=== PATIENT | male | born 1965 | race African-American/Black ===

== ENCOUNTER 2016-12-07 12:33 | Emergency (ER) | payer MEDICAID ==
[~2016-12-07] VITALS: Ht 177.8 cm; Wt 87.0 kg
[2016-12-07] MEDS ORDERED: TETANUS, DIPHTHERIA, PERTUSSIS VAC/PF 0.5ML (>7YR OLD) IM ONE (13:15)
[2016-12-07] MEDS ORDERED: BACITRACIN ZINC OINT UDPKT TOP ONE (13:15)
[2016-12-07] MEDS ORDERED: LIDOCAINE HCL 1% 20ML VIAL (Pyxis) INJ MC ONE (13:15)
[2016-12-07 13:29] LABS: BASOPHILS % 0.6 % (0.0-2.0); HEMATOCRIT. 45.2 % (42.0-52.0); HEMOGLOBIN. 15.7 g/dL (14.0-18.0); LYMPHOCYTES % 15.1 % (20.0-50.0); MEAN CORPUSCULAR HEMOGLOBIN 31.4 pg (28.0-32.0); MEAN CORPUSCULAR VOLUME 90.5 fL (80.0-94.0); MEAN PLATELET VOLUME 8.3 fl (7.4-10.4); NEUTROPHILS % 76.3 % (40.0-76.0); PLATELET 191 x1000/uL (130-400); RED BLOOD CELL COUNT 4.99 mill/uL (4.7-6.1); RED CELL DISTRIBUTION WIDTH 14.2 % (11.6-14.6)
[2016-12-07 13:37] LABS: CARBON DIOXIDE 29 mEq/L (21-32); CHLORIDE 106 mEq/L (98-107); ETHANOL BLOOD < 10 mg/dL
[2016-12-07 14:37] LABS: *AMPHETAMINES SCREEN URINE NEGATIVE (NEGATIVE); *BARBITURATES SCREEN URINE NEGATIVE (NEGATIVE); *BENZODIAZEPINES SCREEN URINE NEGATIVE (NEGATIVE); *COCAINE SCREEN URINE PRESUMTIVE POSITIVE (NEGATIVE); CANNABINOID URINE SCREEN PRESUMTIVE POSITIVE (NEGATIVE); METHADONE URINE SCREEN NEGATIVE (NEGATIVE); OPIATES URINE SCREEN NEGATIVE (NEGATIVE); PHENCYCLIDINE URINE SCREEN NEGATIVE (NEGATIVE)
[2016-12-07 17:03] VITALS: BP 168/99
== END 2016-12-07 17:26 | disposition home or self-care (01) ==
LOC: ER 13:10
DX: S61.512A Laceration without foreign body of left wrist, initial encounter (principal); F20.9 Schizophrenia, unspecified; F32.9 Major depressive disorder, single episode, unspecified; F19.10 Other psychoactive substance abuse, uncomplicated; R45.851 Suicidal ideations; X78.1XXA Intentional self-harm by knife, initial encounter; Y93.89 Activity, other specified; Y99.8 Other external cause status; Y92.89 Other specified places as the place of occurrence of the external cause; Z87.891 Personal history of nicotine dependence
CPT/HCPCS: 12001; 36415; 80048; 80305; 80307; 80329; 85025; 90471; 90715; 99284; G0482; J3490; X7700; Z7610

== ENCOUNTER 2018-09-20 07:36 | Emergency (ER) | payer MEDICAID ==
[~2018-09-20] VITALS: Ht 175.3 cm; Wt 100.0 kg
[2018-09-20] MEDS ORDERED: SODIUM CHLORIDE 0.9% 1,000 ML IV ONE (08:01)
[2018-09-20] MEDS ORDERED: LORAZEPAM 1MG TABLET PO ONE (08:15)
[2018-09-20 08:27] LABS: BASOPHILS % 0.9 % (0.0-2.0); HEMATOCRIT. 41.8 % (42.0-52.0); HEMOGLOBIN. 14.7 g/dL (14.0-18.0); LYMPHOCYTES % 40.1 % (20.0-50.0); MEAN CORPUSCULAR HEMOGLOBIN 32.1 pg (28.0-32.0); MEAN CORPUSCULAR VOLUME 91.3 fL (80.0-94.0); MEAN PLATELET VOLUME 10.9 fl (7.4-10.4); MONOCYTES % 6.9 % (2.0-8.0); NEUTROPHILS % 49.1 % (40.0-76.0); PLATELET 379 x1000/uL (130-400); RED BLOOD CELL COUNT 4.58 mill/uL (4.7-6.1); RED CELL DISTRIBUTION WIDTH 14.9 % (11.6-14.6)
[2018-09-20] MEDS ORDERED: ONDANSETRON HCL 4MG/2ML INJ IV ONE (08:30)
[2018-09-20 09:08] LABS: CLARITY URINE CLEAR (CLEAR); COLOR URINE YELLOW (YELLOW); KETONES URINE 1+ (NEGATIVE); LEUKOCYTE ESTERASE URINE NEGATIVE (NEGATIVE); NITRITE URINE NEGATIVE (NEGATIVE); OCCULT BLOOD URINE TRACE (NEGATIVE); PH URINE 7.5 (4.5-8.0); PROTEIN URINE TRACE (NEGATIVE); SPECIFIC GRAVITY URINE 1.011 (1.005-1.030); UROBILINOGEN URINE 0.2 E.U./dL (0.2-1.0)
[2018-09-20 09:11] LABS: CHLORIDE 108 mEq/L (98-107)
[2018-09-20 09:18] LABS: ETHANOL BLOOD < 10 mg/dL
[2018-09-20 09:19] LABS: *AMPHETAMINES SCREEN URINE NEGATIVE (NEGATIVE); *BARBITURATES SCREEN URINE NEGATIVE (NEGATIVE); *BENZODIAZEPINES SCREEN URINE NEGATIVE (NEGATIVE); *COCAINE SCREEN URINE NEGATIVE (NEGATIVE); METHADONE URINE SCREEN NEGATIVE (NEGATIVE); OPIATES URINE SCREEN NEGATIVE (NEGATIVE)
[2018-09-20 09:20] LABS: CANNABINOID URINE SCREEN PRESUMTIVE POSITIVE (NEGATIVE); PHENCYCLIDINE URINE SCREEN NEGATIVE (NEGATIVE)
[2018-09-20 11:17] VITALS: BP 165/104
== END 2018-09-20 11:21 | disposition home or self-care (01) ==
LOC: ER 07:36
DX: T40.7X1A Poisoning by cannabis (derivatives), accidental (unintentional), initial encounter (principal); R42 Dizziness and giddiness; Y92.89 Other specified places as the place of occurrence of the external cause
CPT/HCPCS: 36415; 80053; 80305; 80320; 81003; 85025; 93005; 96361; 96374; 99284; J2405; J7030; Z7610; G0480

== ENCOUNTER 2021-04-30 00:45 | Emergency (ER) | payer MEDICAID ==
[~2021-04-30] VITALS: Ht 177.8 cm; Wt 100.0 kg
[2021-04-30] MEDS ORDERED: IPRATROPIUM BROMIDE (0.02%) 0.5MG/2.5ML NEB HHN STA (00:53)
[2021-04-30] MEDS ORDERED: ALBUTEROL (0.083%) 2.5MG/3ML NEB HHN STA (00:53)
[2021-04-30] MEDS ORDERED: MAGNESIUM 2 G PREMIX 50 ML IV ONE (01:00)
[2021-04-30] MEDS ORDERED: ASPIRIN 81MG TABLET PO ONE (01:00)
[2021-04-30] MEDS ORDERED: NITROGLYCERIN OINT 1GM/INCH UDPKT TD ONE (01:00)
[2021-04-30] MEDS ORDERED: DOPAMINE 400MG/250ML PREMIX 250 ML IV STA (01:05)
[2021-04-30] MEDS: FUROSEMIDE 40MG/4ML VIAL IV ONE ×2 (01:18→01:55)
[2021-04-30 01:31] LABS: BASOPHILS % 0.8 % (0.0-2.0); EOSINOPHILS % 3.2 % (0.0-5.0); HEMATOCRIT. 36.5 % (42.0-52.0); HEMOGLOBIN. 12.6 g/dL (14.0-18.0); LYMPHOCYTES % 48.2 % (20.0-50.0); MEAN CORPUSCULAR HEMOGLOBIN 31.8 pg (28.0-32.0); MEAN CORPUSCULAR VOLUME 92.5 fL (80.0-94.0); MEAN PLATELET VOLUME 8.4 fl (7.4-10.4); MONOCYTES % 5.9 % (2.0-8.0); NEUTROPHILS % 41.9 % (40.0-76.0); PLATELET 207 x1000/uL (130-400); RED BLOOD CELL COUNT 3.95 mill/uL (4.7-6.1); RED CELL DISTRIBUTION WIDTH 14.2 % (11.6-14.6)
[2021-04-30 01:35] LABS: CHLORIDE 111 mEq/L (98-107)
[2021-04-30] MEDS ORDERED: ENOXAPARIN 100MG/ML SYR SUBCUT ONE (03:00)
[2021-04-30] MEDS ORDERED: ONDANSETRON HCL 4MG/2ML INJ IV PRN (08:30)
[2021-04-30] MEDS ORDERED: ACETAMINOPHEN 325MG TABLET PO PRN (08:30)
[2021-04-30 08:49] VITALS: BP 142/91
[2021-04-30] MEDS ORDERED: FUROSEMIDE 40MG/4ML VIAL IVP SCH (09:00)
[2021-04-30] MEDS ORDERED: ASPIRIN 81MG TABLET PO SCH (12:00)
== END 2021-04-30 09:03 | disposition left against medical advice (07) ==
LOC: ER 00:45 → ENRESERV 07:44 → CANRESERV 07:44 → ER 09:03 → CANBEDREQ 17:19
DX: I21.4 Non-ST elevation (NSTEMI) myocardial infarction (principal); I11.0 Hypertensive heart disease with heart failure; I50.9 Heart failure, unspecified; R00.1 Bradycardia, unspecified; F12.10 Cannabis abuse, uncomplicated
CPT/HCPCS: 36415; 71045; 80053; 83605; 83880; 84443; 84484; 85025; 85379; 93005; 94640; 96365; 96368; 96372; 96375; 99291; J1265; J1650; J1940; J3475; Z7610

== ENCOUNTER 2021-05-12 00:07 | Inpatient (IN) | payer MEDICAID ==
[~2021-05-12] VITALS: Ht 170.2 cm; Wt 96.6 kg
[2021-05-12] MEDS ORDERED: FUROSEMIDE 40MG/4ML VIAL IV ONE (00:15)
[2021-05-12 00:39] LABS: BASOPHILS % 1.3 % (0.0-2.0); MEAN CORPUSCULAR HEMOGLOBIN 30.7 pg (28.0-32.0); MEAN CORPUSCULAR VOLUME 92.1 fL (80.0-94.0); MEAN PLATELET VOLUME 8.7 fl (7.4-10.4); MONOCYTES % 5.4 % (2.0-8.0); NEUTROPHILS % 56.3 % (40.0-76.0); PLATELET 213 x1000/uL (130-400); RED BLOOD CELL COUNT 4.24 mill/uL (4.7-6.1); RED CELL DISTRIBUTION WIDTH 14.1 % (11.6-14.6)
[2021-05-12 01:08] LABS: CHLORIDE 112 mEq/L (98-107)
[2021-05-12 01:15] LABS: ETHANOL BLOOD < 10 mg/dL
[2021-05-12 01:35] LABS: *AMPHETAMINES SCREEN URINE NEGATIVE (NEGATIVE); *BARBITURATES SCREEN URINE NEGATIVE (NEGATIVE); *BENZODIAZEPINES SCREEN URINE NEGATIVE (NEGATIVE); *COCAINE SCREEN URINE NEGATIVE (NEGATIVE); METHADONE URINE SCREEN NEGATIVE (NEGATIVE)
[2021-05-12 01:36] LABS: CANNABINOID URINE SCREEN PRESUMTIVE POSITIVE (NEGATIVE); OPIATES URINE SCREEN NEGATIVE (NEGATIVE); PHENCYCLIDINE URINE SCREEN NEGATIVE (NEGATIVE)
[2021-05-12 05:17] VITALS: BP 152/103
[2021-05-12] MEDS ORDERED: AMLO10TA80 PO (05:38)
[2021-05-12] MEDS ORDERED: HYDROCODONE/ACETAMINOPHEN 5/325MG TABLET PO PRN (06:00)
[2021-05-12] MEDS ORDERED: NALOXONE HCL 0.4MG/ML VIAL IV PRN (06:15)
[2021-05-12 07:40] LABS: BASOPHILS % 1.1 % (0.0-2.0); EOSINOPHILS % 3.4 % (0.0-5.0); HEMATOCRIT. 37.6 % (42.0-52.0); HEMOGLOBIN. 12.7 g/dL (14.0-18.0); LYMPHOCYTES % 32.8 % (20.0-50.0); MEAN CORPUSCULAR HEMOGLOBIN 31.8 pg (28.0-32.0); MEAN CORPUSCULAR VOLUME 93.8 fL (80.0-94.0); MEAN PLATELET VOLUME 8.3 fl (7.4-10.4); MONOCYTES % 9.4 % (2.0-8.0); NEUTROPHILS % 53.3 % (40.0-76.0); PLATELET 196 x1000/uL (130-400); RED BLOOD CELL COUNT 4.01 mill/uL (4.7-6.1); RED CELL DISTRIBUTION WIDTH 14.4 % (11.6-14.6)
[2021-05-12 07:51] LABS: CHLORIDE 112 mEq/L (98-107)
[2021-05-12 08:00] VITALS: BP 151/89
[2021-05-12] MEDS: ENOXAPARIN 30MG/0.3ML SYR SUBCUT SCH ×2 (08:37→21:07)
[2021-05-12] MEDS: CARVEDILOL 3.125 MG TABLET PO SCH ×2 (08:37→21:06)
[2021-05-12] MEDS: FUROSEMIDE 40MG/4ML VIAL IVP SCH ×2 (09:00→20:30)
[2021-05-12 12:00] VITALS: BP 156/90
[2021-05-12] MEDS: ASPIRIN 81MG TABLET PO SCH (13:31)
[2021-05-12 16:00] VITALS: BP 159/95
[2021-05-12] MEDS: AMLODIPINE 10MG TABLET PO SCH (17:38)
[2021-05-12 20:00] VITALS: BP 196/145
[2021-05-12] MEDS ORDERED: CLONIDINE 0.2MG TABLET PO PRN (21:00)
[2021-05-12] MEDS ORDERED: GUAIFENESIN 200MG/10ML SUGAR FREE UDC PO PRN ×2 (21:00)
[2021-05-12] MEDS: CLONIDINE 0.2MG TABLET PO PRN (21:07)
[2021-05-13] VITALS (7 sets, daily range): BP systolic 106–176; BP diastolic 89–104
[2021-05-13] MEDS: IPRATROPIUM/ALBUTEROL 0.5-3(2.5)MG/3ML NEB HHN SCH ×7 (04:59→23:49)
[2021-05-13] MEDS: AMLODIPINE 10MG TABLET PO SCH (08:23)
[2021-05-13] MEDS: ASPIRIN 81MG TABLET PO SCH (08:23)
[2021-05-13] MEDS: CARVEDILOL 3.125 MG TABLET PO SCH ×2 (08:23→21:50)
[2021-05-13] MEDS: ENOXAPARIN 30MG/0.3ML SYR SUBCUT SCH ×2 (08:24→21:50)
[2021-05-13] MEDS: FUROSEMIDE 40MG/4ML VIAL IVP SCH ×2 (09:16→20:29)
[2021-05-13] MEDS ORDERED: REGADENOSON 0.4 MG/5 ML IV ONE (10:30)
[2021-05-13] MEDS: CLONIDINE 0.2MG TABLET PO PRN (16:40)
[2021-05-14] VITALS: BP 128/82
[2021-05-14 04:00] VITALS: BP_SYST 116; BP_SYST 151; BP_DIAS 107; BP_DIAS 97
[2021-05-14 08:00] VITALS: BP 151/117
[2021-05-14] MEDS ORDERED: REGADENOSON 0.4 MG/5 ML IV ONE ×2 (08:58→10:38)
[2021-05-14] MEDS: AMLODIPINE 10MG TABLET PO SCH (09:00)
[2021-05-14] MEDS: ASPIRIN 81MG TABLET PO SCH (09:00)
[2021-05-14] MEDS: CARVEDILOL 3.125 MG TABLET PO SCH (09:00)
[2021-05-14] MEDS: ENOXAPARIN 30MG/0.3ML SYR SUBCUT SCH (09:00)
[2021-05-14] MEDS: FUROSEMIDE 40MG/4ML VIAL IVP SCH ×2 (09:00→12:39)
[2021-05-14] MEDS: IPRATROPIUM/ALBUTEROL 0.5-3(2.5)MG/3ML NEB HHN SCH (09:10)
[2021-05-14] MEDS ORDERED: FURO-151 MT (10:03)
[2021-05-14] MEDS ORDERED: COR3 PO (10:03)
[2021-05-14] MEDS ORDERED: FLUT1DIS3 INH (10:03)
[2021-05-14] MEDS ORDERED: LOSA100T32 MT (10:03)
[2021-05-14] MEDS ORDERED: ALBU18HF2 IH (10:03)
[2021-05-14] MEDS ORDERED: ATORVASTATIN CALCIUM 10MG TABLET PO SCH (11:30)
[2021-05-14] MEDS: CLONIDINE 0.2MG TABLET PO PRN (11:39)
[2021-05-14 12:11] VITALS: BP 158/105
[2021-05-14] MEDS ORDERED: LOSARTAN POTASSIUM 100 MG TABLET PO SCH (12:30)
== END 2021-05-14 13:40 | disposition home or self-care (01) | DRG 194 ==
LOC: ER 00:07 → 8WST 03:08 → ENRESERV 03:54
PROVIDERS: ADMIT Internal Medicine; ATTEND Internal Medicine
PROC: 5A09357 Assistance with Respiratory Ventilation, Less than 24 Consecutive Hours, Continuous Positive Airway Pressure (ICD-10-PCS; principal; 2021-05-12)
DX: I13.0 Hypertensive heart and chronic kidney disease with heart failure and stage 1 through stage 4 chronic kidney disease, or unspecified chronic kidney disease (principal); J96.00 Acute respiratory failure, unspecified whether with hypoxia or hypercapnia; I50.21 Acute systolic (congestive) heart failure; F12.90 Cannabis use, unspecified, uncomplicated; F17.210 Nicotine dependence, cigarettes, uncomplicated; N18.9 Chronic kidney disease, unspecified; I34.0 Nonrheumatic mitral (valve) insufficiency; I16.0 Hypertensive urgency; Z20.822 Contact with and (suspected) exposure to COVID-19; E78.5 Hyperlipidemia, unspecified; I25.10 Atherosclerotic heart disease of native coronary artery without angina pectoris; I25.5 Ischemic cardiomyopathy; Z79.82 Long term (current) use of aspirin; Z79.899 Other long term (current) drug therapy; Z71.6 Tobacco abuse counseling
CPT/HCPCS: 36415; 71045; 78452; 80048; 80053; 80061; 80305; 80320; 83605; 83880; 84484; 85025; 87426; 93005; 93017; 93306; 94660; 99291; A9500; J1650; J1940; J2785; G0480

== ENCOUNTER 2021-12-06 04:07 | Inpatient (IN) | payer MEDICAID ==
[~2021-12-06] VITALS: Ht 172.7 cm; Wt 110.7 kg
[~2021-12-06 04:07] MED LIST: ALBU18HF2 IH; COR3 PO; FLUT1DIS3 INH; FURO-151 MT; LOSA100T32 MT
[2021-12-06] MEDS ORDERED: EPINEPHRINE 1:1000 1 MG/ML AMP IM ONE (04:30)
[2021-12-06] MEDS ORDERED: FAMOTIDINE 20MG/2ML VIAL IV ONE (04:30)
[2021-12-06] MEDS ORDERED: DIPHENHYDRAMINE 50MG/ML VIAL IV ONE (04:30)
[2021-12-06] MEDS ORDERED: METHYLPREDNISOLONE SOD SUCC 125 MG/2 ML VIAL IV ONE (04:30)
[2021-12-06 06:21] LABS: CHLORIDE 111 mEq/L (98-107)
[2021-12-06 06:26] LABS: HEMATOCRIT 40.1 % (42.0-52.0); HEMOGLOBIN 13.6 g/dL (14.0-18.0); MEAN CORPUSCULAR HEMOGLOBIN 31.6 pg (28.0-32.0); MEAN CORPUSCULAR VOLUME 93.1 fL (80.0-94.0); PLATELET 172 x1000/uL (130-400); RED BLOOD CELL COUNT 4.31 mill/uL (4.7-6.1)
[2021-12-06] MEDS ORDERED: ONDANSETRON HCL 4MG/2ML INJ IV PRN (07:30)
[2021-12-06] MEDS ORDERED: MAGNESIUM/ALUMINUM HYDROXIDE/SIMETHICONE 30ML UDC PO PRN (07:30)
[2021-12-06] MEDS ORDERED: LORAZEPAM 2MG/ML CPJ IV PRN (07:30)
[2021-12-06] MEDS ORDERED: DIPHENHYDRAMINE 50MG/ML VIAL IV PRN (07:30)
[2021-12-06] MEDS ORDERED: KETOROLAC 15MG/ML VIAL IV PRN (07:30)
[2021-12-06] MEDS ORDERED: ENOXAPARIN 40MG/0.4ML SYR SUBCUT SCH (07:30)
[2021-12-06] MEDS ORDERED: ZOLPIDEM TARTRATE 5MG TABLET PO PRN (07:30)
[2021-12-06] MEDS ORDERED: IPRATROPIUM/ALBUTEROL 0.5-3(2.5)MG/3ML NEB NEB PRN (07:30)
[2021-12-06] MEDS ORDERED: CLONIDINE 0.1MG TABLET PO PRN (07:30)
[2021-12-06] MEDS ORDERED: ACETAMINOPHEN 325MG TABLET PO PRN ×2 (07:30)
[2021-12-06] MEDS ORDERED: GUAIFENESIN 200MG/10ML SUGAR FREE UDC PO PRN (07:30)
[2021-12-06] MEDS ORDERED: DOCUSATE SODIUM 100MG CAPSULE PO PRN (07:30)
[2021-12-06] MEDS ORDERED: NITROGLYCERIN OINT 1GM/INCH UDPKT TD SCH (07:45)
[2021-12-06] MEDS ORDERED: DEXT 5%/LACTATED RINGERS 1,000 ML IV SCH (07:45)
[2021-12-06] MEDS: ENOXAPARIN 30MG/0.3ML SYR SUBCUT SCH ×2 (08:47→08:51)
[2021-12-06] MEDS ORDERED: PANTOPRAZOLE SODIUM 40 MG/VIAL IV SCH (09:00)
[2021-12-06 10:37] LABS: ETHANOL BLOOD < 10 mg/dL; HDL CHOLESTEROL 26 mg/dL (40-59); LDL CHOLESTEROL 42 mg/dL (5-100); TOTAL IRON BINDING CAPACITY 319 ug/dL (250-450)
[2021-12-06 11:34] LABS: FOLIC ACID (FOLATE) SERUM 15.6 ng/mL (>5.38)
[2021-12-06 11:35] VITALS: BP 169/94
[2021-12-06 12:07] LABS: *AMPHETAMINES SCREEN URINE NEGATIVE (NEGATIVE); *BARBITURATES SCREEN URINE NEGATIVE (NEGATIVE); *BENZODIAZEPINES SCREEN URINE NEGATIVE (NEGATIVE); *COCAINE SCREEN URINE NEGATIVE (NEGATIVE); CANNABINOID URINE SCREEN PRESUMTIVE POSITIVE (NEGATIVE); METHADONE URINE SCREEN NEGATIVE (NEGATIVE); OPIATES URINE SCREEN NEGATIVE (NEGATIVE); PHENCYCLIDINE URINE SCREEN NEGATIVE (NEGATIVE)
[2021-12-06 13:00] VITALS: BP 160/90
[2021-12-06] MEDS ORDERED: METHYLPREDNISOLONE SOD SUCC 125 MG/2 ML VIAL IV SCH (14:00)
== END 2021-12-06 13:00 | disposition left against medical advice (07) | DRG 811 ==
LOC: ER 04:07 → 7WST 05:41 → EDBEDREQSVC 09:39 → ENRESERV 10:10 → UNDODISIN 13:00
PROVIDERS: ADMIT Internal Medicine; ATTEND Internal Medicine
DX: T78.3XXA Angioneurotic edema, initial encounter (principal); E66.9 Obesity, unspecified; I10 Essential (primary) hypertension; T43.215A Adverse effect of selective serotonin and norepinephrine reuptake inhibitors, initial encounter; T46.5X5A Adverse effect of other antihypertensive drugs, initial encounter; Z79.51 Long term (current) use of inhaled steroids; Z68.37 Body mass index [BMI] 37.0-37.9, adult; Z79.899 Other long term (current) drug therapy; Y92.89 Other specified places as the place of occurrence of the external cause; Z71.3 Dietary counseling and surveillance
CPT/HCPCS: 36415; 80053; 80061; 80305; 80320; 82607; 82746; 83036; 83540; 83550; 84443; 85027; 93970; 99285; C9113; J1200; J1650; J2930; J3490; J7121; G0480